=== PATIENT | male | born 1990 | race African-American/Black ===

== ENCOUNTER 2018-09-05 22:11 | Emergency (ER) | payer OTHER ==
[2018-09-05 23:41] LABS: Urine Blood NEGATIVE (NEG); Urine Glucose NEGATIVE (NEG); Urine Protein NEGATIVE (NEG); Urine pH 7.5 (5.0-7.0)
[2018-09-05 23:46] LABS: Urine Culture Reflex Order NOT NEEDED
[2018-09-05 23:47] LABS: Urine Amorphous Sediment 3+ /HPF (NONE SEEN); Urine Bacteria <20 /HPF (NONE SEEN); Urine RBC NONE SEEN /HPF (NONE SEEN)
--- NOTE | 2018-09-06 00:09 | ER ---
Nurse's Notes [facility] Name: Bakari Heller Age: 28 yrs Sex: Male : 1990 Arrival Date: 09/05/2018 Time: 22:12 Bed 15 Private MD: Diagnosis: Renal colic, flank pain Presentation: 09/05 22:30 Presenting complaint: Patient states: L flank pain for months; Denies any burning with lp1 urination; States having a physical done for work and was told he had protein in his urine. Transition of care: patient was not received from another setting of care. Onset of symptoms was September 05, 2018. Risk Assessment: Do you want to hurt yourself or someone else? Patient reports no desire to harm self or others. Initial Sepsis Screen: Does the patient meet any 2 criteria? No. Patient's initial sepsis screen is negative. Does the patient have a suspected source of infection? No. Patient's initial sepsis screen is negative. Care prior to arrival: None. 22:30 Method Of Arrival: Ambulatory lp1 22:30 Acuity: CARLYLE 3 lp1 Triage Assessment: 22:50 General: Appears in no apparent distress. comfortable, Behavior is calm, cooperative, cc3 appropriate for age. Pain: Complains of pain in flank pain. Historical: - Allergies: 22:49 No Known Allergies; lp1 - Home Meds: 22:49 None [Active]; lp1 - PMHx: 22:49 None; lp1 - PSHx: 22:49 None; lp1 - Immunization history:: Adult Immunizations up to date. - Social history:: Smoking status: Patient/guardian denies using tobacco. - Ebola Screening: : No symptoms or risks identified at this time. Screenin:49 Abuse screen: Denies threats or abuse. Denies injuries from another. Nutritional lp1 screening: No deficits noted. Tuberculosis screening: No symptoms or risk factors identified. Fall Risk None identified. Assessment: 23:30 Reassessment: Patient appears in no apparent distress at this time. Patient and/or cc3 family updated on plan of care and expected duration. Pain level reassessed. Patient is alert, oriented x 3, equal unlabored respirations, skin warm/dry/pink. 09/06 00:25 Reassessment: Patient appears in no apparent distress at this time. Patient and/or cc3 family updated on plan of care and expected duration. Pain level reassessed. Patient is alert, oriented x 3, equal unlabored respirations, skin warm/dry/pink. HARRIS Banda discharged the patient home with prescription given. No IV cannula in situ. Patient left ER vitally stable and ambulatory. Vital Signs: 09/05 22:30 BP 130 / 89; Pulse 64; Resp 18; Temp 99(TE); Pulse Ox 98% on R/A; Weight 83.01 kg; lp1 Height 6 ft. 0 in. (182.88 cm); Pain 6/10; 23:35 BP 129 / 85; Pulse 63; Resp 17 S; Pulse Ox 97% on R/A; cc3 09/06 00:15 BP 131 / 79; Pulse 66; Resp 18 S; Pulse Ox 98% on R/A; cc3 09/05 22:30 Body Mass Index 24.82 (83.01 kg, 182.88 cm) lp1 ED Course: 09/05 22:12 Patient arrived in ED. ds1 22:24 [facility] Lux F[facility]-C [facility]. snw 22:24 Maico Coe MD is Attending Physician. snw 22:33 Maria Fernanda Boyd is Primary Nurse. cc3 22:48 Triage completed. lp1 22:49 Arm band placed on left wrist. lp1 22:50 Patient has correct armband on for positive identification. Bed in low position. Call cc3 light in reach. Side rails up X 1. Pulse ox on. NIBP on. 23:[address] via wheelchair. kw1 23:23 CT Stone Protocol In Process Unspecified. EDMS 23:24 CT completed. Patient tolerated procedure well. Patient moved back from CT. kw1 09/06 00:25 No provider procedures requiring assistance completed. Patient did not have IV access cc3 during this emergency room visit. Administered Medications: No medications were administered Outcome: 00:09 Discharge ordered by . snw 00:25 Discharged to home ambulatory. cc3 00:25 Condition: stable 00:25 Discharge instructions given to patient, Instructed on discharge instructions, follow up and referral plans. medication usage, Demonstrated understanding of instructions, follow-up care, medications, Prescriptions given X 1. 00:27 Patient left the ED. cc3 Addendum: 09/09/2018 11:00 Addendum: Culture Results: Positive urine culture. Patient was not prescribed i w antibiotics at discharge. Report given to RUBA for further evaluation and then to media senior recruiter for follow up with patient. Phone call Attempt #1 not a working phone number, unable to leave voice mail. Signatures: Dispatcher [employer] EDMS Veronika Lux, FAYC BRANCH CHIEF-Csnw Rosanna Mora ds1 Ирина Spivey RN RN iw Judith Henry RN RN lp1 Madie Carr kw1 Maria Fernanda Boyd cc3
--- NOTE | 2018-09-06 00:10 | EDPHYS ---
Physician Documentation [facility] Name: Bakari Heller Age: 28 yrs Sex: Male : 1990 Arrival Date: 09/05/2018 Time: 22:12 Bed 15 Private MD: ED Physician Maico Coe HPI: 09/05 22:42 This 28 yrs old Black Male presents to ER via Unassigned with complaints of Side Pain, snw Kidney Pain. 22:42 Onset: The symptoms/episode began/occurred gradually. Associated signs and symptoms: snw Pertinent positives: protein in urine at recent physical, pt now fearful of kidney injury. Modifying factors: The patient symptoms are alleviated by nothing. The patient has experienced similar episodes in the past, several times. for Jocelyne physical, told to see urologist 2nd to proteinuria. Historical: - Allergies: 22:49 No Known Allergies; lp1 - Home Meds: 22:49 None [Active]; lp1 - PMHx: 22:49 None; lp1 - PSHx: 22:49 None; lp1 - Immunization history:: Adult Immunizations up to date. - Social history:: Smoking status: Patient/guardian denies using tobacco. - Ebola Screening: : No symptoms or risks identified at this time. ROS: 22:40 Constitutional: Negative for fever, chills, and weight loss, Eyes: Negative for injury, snw pain, redness, and discharge, ENT: Negative for injury, pain, and discharge, Neck: Negative for injury, pain, and swelling, Cardiovascular: Negative for chest pain, palpitations, and edema, Respiratory: Negative for shortness of breath, cough, wheezing, and pleuritic chest pain, Abdomen/GI: Negative for abdominal pain, nausea, vomiting, diarrhea, and constipation, : Negative for injury, bleeding, discharge, and swelling, MS/Extremity: Negative for injury and deformity, Skin: Negative for injury, rash, and discoloration, Neuro: Negative for headache, weakness, numbness, tingling, and seizure. Exam: 22:39 Constitutional: This is a well developed, well nourished patient who is awake, alert, snw and in no acute distress. Head/Face: Normocephalic, atraumatic. Eyes: Pupils equal round and reactive to light, extra-ocular motions intact. Lids and lashes normal. Conjunctiva and sclera are non-icteric and not injected. Cornea within normal limits. Periorbital areas with no swelling, redness, or edema. ENT: Nares patent. No nasal discharge, no septal abnormalities noted. Tympanic membranes are normal and external auditory canals are clear. Oropharynx with no redness, swelling, or masses, exudates, or evidence of obstruction, uvula midline. Mucous membranes moist. Neck: Trachea midline, no thyromegaly or masses palpated, and no cervical lymphadenopathy. Supple, full range of motion without nuchal rigidity, or vertebral point tenderness. No Meningismus. Chest/axilla: Normal chest wall appearance and motion. Nontender with no deformity. No lesions are appreciated. Cardiovascular: Regular rate and rhythm with a normal S1 and S2. No gallops, murmurs, or rubs. Normal PMI, no JVD. No pulse deficits. Respiratory: Lungs have equal breath sounds bilaterally, clear to auscultation and percussion. No rales, rhonchi or wheezes noted. No increased work of breathing, no retractions or nasal flaring. Abdomen/GI: Soft, non-tender, with normal bowel sounds. No distension or tympany. No guarding or rebound. No evidence of tenderness throughout. Skin: Warm, dry with normal turgor. Normal color with no rashes, no lesions, and no evidence of cellulitis. MS/ Extremity: Pulses equal, no cyanosis. Neurovascular intact. Full, normal range of motion. Neuro: Awake and alert, GCS 15, oriented to person, place, time, and situation. Cranial nerves II-XII grossly intact. Motor strength 5/5 in all extremities. Sensory grossly intact. Cerebellar exam normal. Normal gait. 22:39 Back: pain, that is mild, CVA tenderness, that is mild, is noted on the left. Vital Signs: 22:30 BP 130 / 89; Pulse 64; Resp 18; Temp 99(TE); Pulse Ox 98% on R/A; Weight 83.01 kg; lp1 Height 6 ft. 0 in. (182.88 cm); Pain 6/10; 23:35 BP 129 / 85; Pulse 63; Resp 17 S; Pulse Ox 97% on R/A; cc3 09/06 00:15 BP 131 / 79; Pulse 66; Resp 18 S; Pulse Ox 98% on R/A; cc3 09/05 22:30 Body Mass Index 24.82 (83.01 kg, 182.88 cm) lp1 MDM: 09/05 22:24 Patient medically screened. snw 09/06 00:10 Data reviewed: vital signs, nurses notes. Data interpreted: Pulse oximetry: on room air snw is 98 %. Interpretation: normal. Counseling: I had a detailed discussion with the patient and/or guardian regarding: the historical points, exam findings, and any diagnostic results supporting the discharge/admit diagnosis, the presence of at least one elevated blood pressure reading (>120/80) during this emergency department visit, lab results, radiology results, the need for outpatient follow up, to return to the emergency department if symptoms worsen or persist or if there are any questions or concerns that arise at home. Special discussion: Based on the history and exam findings, there is no indication for further emergent testing or inpatient evaluation. I discussed with the patient/guardian the need to see the primary care provider for further evaluation of the symptoms. 09/05 22:34 Order name: Urine Microscopic Only; Complete Time: 23:48 snw 09/05 22:39 Order name: Urine Culture snw 09/05 22:34 Order name: Urine Dipstick-Ancillary (obtain specimen); Complete Time: 23:03 snw 09/05 22:39 Order name: CT Stone Protocol snw 09/05 22:59 Order name: Urine Dipstick--Ancillary (enter results); Complete Time: 23:42 mt Administered Medications: No medications were administered Disposition: 06:46 Co-signature as Attending Physician, Maico Coe MD I agree with the assessment and jose plan of care. Disposition: 09/06/18 00:09 Discharged to Home. Impression: Renal colic, flank pain. - Condition is Stable. - Discharge Instructions: Back Pain, Adult, Renal Colic. - Prescriptions for Diclofenac Sodium 75 mg Oral Tablet Sustained Release - take 1 tablet by ORAL route 2 times per day; 30 tablet. - Work release form, Medication Reconciliation Form, Thank You Letter, Antibiotic Education, Prescription Opioid Use form. - Follow up: Private Physician; When: 2 - 3 days; Reason: Recheck today's complaints, Continuance of care, Re-evaluation by your physician. Follow up: Emergency Department; When: As needed; Reason: Worsening of condition. Signatures: Dispatcher [employer] EDMS Maico Coe MD MD cha Therrien, Shelly, GIS SCIENTIST-C GIS SCIENTIST-Csnw Judith Henry RN RN lp1 Maria Fernanda Boyd cc3 Corrections: (The following items were deleted from the chart) 00:27 00:09 09/06/2018 00:09 Discharged to Home. Impression: Renal colic, flank pain. cc3 Condition is Stable. Forms are Medication Reconciliation Form, Thank You Letter, Antibiotic Education, Prescription Opioid Use. Follow up: Private Physician; When: 2 - 3 days; Reason: Recheck today's complaints, Continuance of care, Re-evaluation by your physician. Follow up: Emergency Department; When: As needed; Reason: Worsening of condition. snw
--- NOTE | 2018-09-06 08:40 | RAD REPORT ---
EXAM DESCRIPTION: CT - Stone Protocol - 09/06/2018 5:51 am CLINICAL HISTORY: Abdominal pain. Left flank pain COMPARISON: None. TECHNIQUE: Computed axial tomography of the abdomen pelvis was obtained without oral or IV contrast. Lack of IV and oral contrast limits evaluation of solid organs, bowel, and vessels. Coronal reformat bhumika images were obtained and reviewed. Preliminary report generated by virtual radiologic a review pr ior to dictation All CT scans are performed using dose optimization technique as appropriate and may include automated exposure control or mA/KV adjustment according to patient size. FINDINGS: A renal calculus is not seen. An ureteral calculus is not noted. A bladder calculus is not present. The liver, spleen, pancreas and adrenals appear grossly normal There is no evidence of diverticulitis. The appendix appears normal Spondylolysis involves L5. A moderate amount of stool is present throughout colon IMPRESSION: Negative for a genitourinary calculus
== END 2018-09-06 00:27 | disposition home or self-care (01) ==
LOC: ER 22:11
DX: N23 Unspecified renal colic (principal)
CPT/HCPCS: 74176; 76377; 81003; 81015; 87077; 87086; 87088; 87186; 99284

== ENCOUNTER 2021-04-20 17:37 | Emergency (ER) | payer OTHER, SELFPAY ==
--- OUTSIDE RECORDS SUMMARY | 2021-04-20 17:39 | XMS REPORT | Continuity of Care Document ---
:1990 Author Organization [facility] t Address [address] [place] [address] Care Team Providers Name Role Phone Unavailable Unavailable Unavailable Problems This patient has no known problems. Allergies, Adverse Reactions, Alerts This patient has no known allergies or adverse reactions. Medications This patient has no known medications. Procedures This patient has no known procedures. Results Test Description Test Time Test Comments Results Result [facility] e Comments Urine Culture 2019-07-15 C Urine Added No growth at 2 days. 07:00:46 by [email or web address] X US Extremity 2019-07-14 Patient: KING Nonvascular 16:00:59 TJ Limited Bilat Date/Time07/14/2019 15:46 CDTReason for Exampenis pain;Other (please specify)ReportUltras ound soft tissue penisHISTORY: Sudden onset penile pain without precipitating event or injuryCOMPARISON: NoneTECHNIQUE: Real-time sonographic images of the penis obtained with color Doppler interrogation.FINDIN GS: No definable defect identified regarding the tunica albuginea of the corpora cavernosa. No hematoma or free fluid evident. No soft tissue mass identified.IMPRESSIO N:1. Unremarkable sonographic appearance of the penis. Final Dictated by: MD Boris, David DT/TM: 07/14/2019 3:58 pmSigned by: MD Boris, Froilan (Electronic Signature): 07/14/2019 4:00 pm Urinalysis Microscopic 2019-07-14 14:58:34 Test Item Value Reference Range Interpretation Comme nts UA WBC (test code = UA WBC) 0-5 /HPF 0-5 UA RBC (test code = UA RBC) 0-4 /HPF 0-4 Urinalysis with Culture, if [id number] 14:41:49 Test Item Value Reference Range Interpretation Comments UA Color (test code = Gricel Yellow A UA Color) UA Appear (test code = Clear Clear UA Appear) UA pH (test code = UA 7.0 5.0-8.5 pH) UA Spec Grav (test code 1.020 SGU 1.005-1.030 = UA Spec Grav) UA Glucose (test code = Negative Negative UA Glucose) UA Bili (test code = UA Negative Negative Bili) UA Ketones (test code = Negative Negative UA Ketones) UA Blood (test code = Trace-intact Negative A UA Blood) UA Protein (test code = 1+ Negative A UA Protein) UA Urobilinogen (test 0.2 EU/dL >0.2 code = UA Urobilinogen) UA Nitrite (test code = Negative Negative UA Nitrite) UA Leuk Est (test code 1+ Negative A = UA Leuk Est) UA Micro Ind? (test Indicated Not Indicated A Result created by code = UA Micro Ind?) rule GL_SET_UA_MICRO _IN D
--- NOTE | 2021-04-20 18:31 | RAD REPORT ---
EXAM DESCRIPTION: RAD - Ankle Left 3 View - 04/20/2021 6:17 pm CLINICAL HISTORY: PAIN COMPARISON: Ankle Left 3 View dated 09/01/2015 FINDINGS: Mild soft tissue swelling is present. No acute fracture or dislocation seen. Small bony de nsity in the medial clear space is probably related to previous trauma. Tiny calcaneal spur.
--- NOTE | 2021-04-20 18:42 | EDPHYS ---
Physician Documentation [facility] Name: Bakari Heller Age: 31 yrs Sex: Male : 1990 Arrival Date: 04/20/2021 Time: 17:42 Bed 4 Private MD: ED Physician Carolann Bolanos HPI: 04/20 18:18 This 31 yrs old Black Male presents to ER via EMS with complaints of Ankle Injury. ma2 18:18 The patient presents with pain. Onset: The symptoms/episode began/occurred suddenly, 1 ma2 hour(s) ago. Associated signs and symptoms: Pertinent negatives: fever, rash, tingling. Severity of symptoms: At their worst the symptoms were mild, in the emergency department the symptoms are unchanged. The patient has not experienced similar symptoms in the past. Historical: - Allergies: 17:45 No Known Allergies; bp - Home Meds: 17:45 None [Active]; bp - PMHx: 17:45 None; bp - Immunization history:: Adult Immunizations up to date. - Social history:: Smoking status: Patient denies any tobacco usage or history of. - Family history:: not pertinent. ROS: 18:18 Constitutional: Negative for fever, chills, and weight loss. ma2 18:18 All other systems are negative. Exam: 18:18 Constitutional: This is a well developed, well nourished patient who is awake, alert, ma2 and in no acute distress. Chest/axilla: Normal chest wall appearance and motion. Nontender with no deformity. No lesions are appreciated. Cardiovascular: Regular rate and rhythm with a normal S1 and S2. No gallops, murmurs, or rubs. Normal PMI, no JVD. No pulse deficits. Respiratory: Lungs have equal breath sounds bilaterally, clear to auscultation and percussion. No rales, rhonchi or wheezes noted. No increased work of breathing, no retractions or nasal flaring. Abdomen/GI: Soft, non-tender, with normal bowel sounds. No distension or tympany. No guarding or rebound. No evidence of tenderness throughout. Back: No spinal tenderness. No costovertebral tenderness. Full range of motion. Skin: Warm, dry with normal turgor. Normal color with no rashes, no lesions, and no evidence of cellulitis. MS/ Extremity: left achilles tendon tenderness and swelling, no alfonso ttp at foot or ankle, otherwise Pulses equal, no cyanosis. Neurovascular intact. Full, normal range of motion. Neuro: Awake and alert, GCS 15, oriented to person, place, time, and situation. Cranial nerves II-XII grossly intact. Motor strength 5/5 in all extremities. Sensory grossly intact. Cerebellar exam normal. Normal gait. Vital Signs: 17:42 BP 133 / 93; Pulse 96; Resp 17; Temp 98; Pulse Ox 98% ; bp 20:00 BP 151 / 88; Pulse 68; Resp 18; Temp 97.8; Pulse Ox 99% ; ea Procedures: 18:18 Splinting: Splint applied to left leg. Splinting: using Orthoglass splint, applied by [facility] tech. post reduction film - Examined by me, post splint application: neurovascular intact, 2+ distal pulses palpable, brisk capillary refill noted, Patient tolerated well. MDM: 17:44 Patient medically screened. kb 18:40 Differential diagnosis: sprain, arthritis, achilles tendon partial vs complete sprain. [facility] Data reviewed: vital signs, nurses notes. Counseling: I had a detailed discussion with the patient and/or guardian regarding: the historical points, exam findings, and any diagnostic results supporting the discharge/admit diagnosis, the presence of at least one elevated blood pressure reading (>120/80) during this emergency department visit, the need for outpatient follow up. Response to treatment: the patient's symptoms have markedly improved after treatment. 04/20 17:47 Order name: XRAY Ankle LEFT 3 view [facility] 04/20 17:49 Order name: Crutches; Complete Time: 19:56 [facility] 04/20 18:21 Order name: Splint Leg: Short Leg: poterior splint with ankle at plantal-flexed; [facility] Complete Time: 19:56 Administered Medications: 20:01 Drug: Olpe (HYDROcodone-acetaminophen) 10 mg-325 mg 1 tabs Route: PO; ea 20:01 Follow up: Response: Medication administered at discharge. ea 20:11 Follow up: Response: Medication administered at discharge. ea Disposition: 04/20/21 18:41 Discharged to Home. Impression: Other specified injury of left Achilles tendon. - Condition is Stable. - Discharge Instructions: Complete Achilles Tendon Rupture, Partial (Incomplete) Achilles Tendon Rupture, Achilles Tendon Repair. - Prescriptions for Diclofenac Sodium 75 mg Oral Tablet Sustained Release - take 1 tablet by ORAL route 2 times per day; 30 tablet. - Work release form, Medication Reconciliation Form, Thank You Letter, Antibiotic Education, Prescription Opioid Use form. - Follow up: Dr. Bruno Minaya; When: Tomorrow; Reason: If symptoms return, Continuance of care. - Notes: see your PCP for MRI of achilles tendon. follow up with orthopedics for further management Signatures: Dispatcher [employer] EDMirian Caal, PUBLIC RELATIONS ACCOUNT EXECUTIVE-C PUBLIC RELATIONS ACCOUNT EXECUTIVE-CkSuzie Pelayo, RN RN Sohail Christensen RN Carolann Little MD MD ma2 Corrections: (The following items were deleted from the chart) 20:11 18:41 04/20/2021 18:41 Discharged to Home. Impression: Other specified injury of left ea Achilles tendon. Condition is Stable. Discharge Instructions: Complete Achilles Tendon Rupture, Partial (Incomplete) Achilles Tendon Rupture, Achilles Tendon Repair. Prescriptions for Diclofenac Sodium 75 mg Oral Tablet Sustained Release - take 1 tablet by ORAL route 2 times per day; 30 tablet. and Forms are Medication Reconciliation Form, Thank You Letter, Antibiotic Education, Prescription Opioid Use. Follow up: Dr. Bruno Minaya; When: Tomorrow; Reason: If symptoms return, Continuance of care. ma2
--- NOTE | 2021-04-20 18:42 | ER ---
Nurse's Notes [facility] Name: Bakari Heller Age: 31 yrs Sex: Male : 1990 Arrival Date: 04/20/2021 Time: 17:42 Bed 4 Private MD: Diagnosis: Other specified injury of left Achilles tendon Presentation: 04/20 17:42 Chief complaint: EMS states: LEFT ANKLE PAIN/DEFORMITY DURING BASKETBALL, NOW WITH bp NUMBNESS BELOW MALEOLUS. Coronavirus screen: At this time, the client does not indicate any symptoms associated with coronavirus-19. Ebola Screen: No symptoms or risks identified at this time. Initial Sepsis Screen: Does the patient meet any 2 criteria? No. Patient's initial sepsis screen is negative. Does the patient have a suspected source of infection? No. Patient's initial sepsis screen is negative. Risk Assessment: Do you want to hurt yourself or someone else? Patient reports no desire to harm self or others. Onset of symptoms was April 20, 2021 at 17:15. Care prior to arrival: Medication(s) given: FENTANYL 50MCG IV initiated. 18 GA, in the left antecubital area. 17:42 Method Of Arrival: EMS: [facility] bp 17:42 Acuity: CARLYLE 3 bp Triage Assessment: 17:45 General: Appears distressed, uncomfortable, Behavior is cooperative, appropriate for bp age, anxious. Pain: Complains of pain in left Achilles. EENT: No deficits noted. Neuro: No deficits noted. Cardiovascular: No deficits noted. Respiratory: No deficits noted. GI: No signs and/or symptoms were reported involving the gastrointestinal system. : No signs and/or symptoms were reported regarding the genitourinary system. Derm: No deficits noted. Musculoskeletal: Circulation, motion, and sensation intact. Range of motion: limited in left ankle. Historical: - Allergies: 17:45 No Known Allergies; bp - Home Meds: 17:45 None [Active]; bp - PMHx: 17:45 None; bp - Immunization history:: Adult Immunizations up to date. - Social history:: Smoking status: Patient denies any tobacco usage or history of. - Family history:: not pertinent. Screenin:47 Abuse screen: Denies threats or abuse. Denies injuries from another. Nutritional bp screening: No deficits noted. Tuberculosis screening: No symptoms or risk factors identified. Fall Risk None identified. Assessment: 17:47 General: SEE TRIAGE NOTE. bp 19:55 Reassessment: Patient and/or family updated on plan of care and expected duration. Pain ea level reassessed. Patient is alert, oriented x 3, equal unlabored respirations, skin warm/dry/pink. Vital Signs: 17:42 BP 133 / 93; Pulse 96; Resp 17; Temp 98; Pulse Ox 98% ; bp 20:00 BP 151 / 88; Pulse 68; Resp 18; Temp 97.8; Pulse Ox 99% ; ea ED Course: 17:42 Patient arrived in ED. bp 17:44 iMrian Butler F[facility]C [facility] kb 17:44 Carolann Bolanos MD is Attending Physician. kb 17:45 Triage completed. bp 17:45 Arm band placed on. bp 17:47 Patient has correct armband on for positive identification. Bed in low position. Call bp light in reach. Side rails up X2. 17:47 Maintain EMS IV. Dressing intact. Good blood return noted. Site clean \T\ dry. Gauge \T\ bp site: 18 GAUGE LEFT AC. 17:49 Sohail Fritz, LAN is Primary Nurse. bp 18:17 XRAY Ankle LEFT 3 view In Process Unspecified. EDMS 18:41 Bruno Minaya MD is Referral Physician. ma2 20:02 Orthoglass splint: Posterior short lleg splint applied on left leg. oe 20:10 No provider procedures requiring assistance completed. IV discontinued, intact, ea bleeding controlled, No redness/swelling at site. Pressure dressing applied. Administered Medications: 20:01 Drug: [place] (HYDROcodone-acetaminophen) 10 mg-325 mg 1 tabs Route: PO; ea 20:01 Follow up: Response: Medication administered at discharge. ea 20:11 Follow up: Response: Medication administered at discharge. ea Outcome: 18:41 Discharge ordered by . ma2 20:10 Discharged to home ambulatory, with family. ea 20:10 Condition: stable 20:10 Discharge instructions given to patient, Instructed on discharge instructions, follow up and referral plans. medication usage, Demonstrated understanding of instructions, follow-up care, medications, Prescriptions given X 1. 20:11 Patient left the ED. ea Signatures: Dispatcher [employer] EDMS Mirian Butler FNP-C AUTOMOTIVE SERVICE WRITER-Ckb Suleman Flores Elena RN RN Sohail Christensen RN RN bp Carolann Bolanos MD MD ma2 Corrections: (The following items were deleted from the chart) 17:57 17:42 Pulse 96bpm; Resp 17bpm; Pulse Ox 98%; Temp 98F; bp bp
[2021-04-20] MEDS ORDERED: HYDROCODONE/APAP 10/325 TAB ONE (20:21)
[2021-04-20 20:52] VITALS: BP 151/88; TEMP 97.8; O2SAT 99
== END 2021-04-20 20:11 | disposition home or self-care (01) ==
LOC: ER 17:37
PROC: 2W3RX1Z Immobilization of Left Lower Leg using Splint (ICD-10-PCS; principal; 2021-04-20)
DX: S86.092A Other specified injury of left Achilles tendon, initial encounter (principal); X58.XXXA Exposure to other specified factors, initial encounter
CPT/HCPCS: 99284

== ENCOUNTER 2021-12-18 03:58 | Emergency (ER) | payer OTHER ==
--- OUTSIDE RECORDS SUMMARY | 2021-12-18 04:04 | XMS REPORT | Continuity of Care Document ---
:1990 Author Organization [facility] t Address [address] [place] [address] Care Team Providers Name Role Phone ASHLEY Attending Clinician Unavailable Ashley AVALOS Attending Clinician DIETER Attending Clinician Unavailable Srinath AVALOS Attending Clinician SRINATH Attending Clinician Unavailable Pipes ANP Attending Clinician Vince Munoz MD Attending Clinician PIPES Attending Clinician Unavailable Draw, Lab Attending Clinician Unavailable Doctor Unassigned, Name Attending Clinician Unavailable Triston Patel DO Attending Clinician Triston PATEL Attending Clinician Unavailable Afshan VEGA, F Attending Clinician Payers Payer Name Policy Type Policy Number Effective Date Expiration Date S irving TUCKER CHOICE POS [id number] 2018 00:00:00 II Problems Condition Condition Condition Status Onset Resolution Last Treating Co mments Source Name Details Category Date Date Treatment Clinician Date Left-sided Left-sided Disease Active 2019-10 U nivers low back low back 2-18 [place] left-sided left-sided 00 Me dical sciatica sciatica Branch No known No known Disease Unive rs active active ity of problems problems [facility] Allergies, Adverse Reactions, Alerts Allergy Allergy Status Severity Reaction(s) Onset Inactive Treating Comm ents Source Name Type Date Date Clinician NO KNOWN Drug Active Univers ALLERGIE Class ity of S [facility] Social History Social Habit Start Date Stop Date Quantity Comments Source Exposure to Not sure [facility] SARS-CoV-2 (event) Medica l Branch Tobacco use and 2020-10-14 2020-10-14 Never used [facility] [place] exposure 00:00:00 00:00:00 Medical Branch Sex Ass[birth year] At [birth year] [facility] 00:00:00 00:00:00 Medical Branch Smoking Status Start Date Stop Date Source Never smoker [facility] Medical Branch Unknown if ever smoked [facility] [place] Medications Ordered Filled Start Stop Current Ordering Indication Dosage Frequency Signature Comments Components Source Medication Medication Date Date Medication? Clinician (SIG) Name Name naproxen 2019-10 Yes [id number] 500 mg Un evelyn 250 mg 2-15 twice ity of tablet 00:00: daily for [place] , Medical then 250 Branch mg twice daily for 10 days naproxen 2019-10 Yes [id number] 500 mg Un evelyn 250 mg 2-15 twice ity of tablet 00:00: daily for [place] , Medical then 250 Branch mg twice daily for 10 days naproxen 2019-10 Yes [id number] 500 mg Un evelyn 250 mg 2-15 twice ity of tablet 00:00: daily for [place] , Medical then 250 Branch mg twice daily for 10 days naproxen 2019-10 Yes [id number] 500 mg Un evelyn 250 mg 2-15 twice ity of tablet 00:00: daily for [place] , Medical then 250 Branch mg twice daily for 10 days naproxen 2019-10 Yes [id number] 500 mg Un evelyn 250 mg 2-15 twice ity of tablet 00:00: daily for [place] , Medical then 250 Branch mg twice daily for 10 days naproxen 2019-10 Yes [id number] 500 mg Un evelyn 250 mg 2-15 twice ity of tablet 00:00: daily for [place] , Medical then 250 Branch mg twice daily for 10 days naproxen 2019-10 Yes [id number] 500 mg Un evelyn 250 mg 2-15 twice ity of tablet 00:00: daily for [place] day, Medical then 250 Branch mg twice daily for 10 days naproxen 2019-10 Yes [id number] 500 mg Un evelyn 250 mg 2-15 twice ity of tablet 00:00: daily for [place] day, Medical then 250 Branch mg twice daily for 10 days naproxen 2019-10 Yes [id number] 500 mg Un evelyn 250 mg 2-15 twice ity of tablet 00:00: daily for 1 day, Medical then 250 Branch mg twice daily for 10 days famotidine 2019-10- No [id number] 20mg Take 1 Univers (PEPCID) 20 2-15 12-27 tablet by it y of mg tablet 00:00: 05:59 [place] 2 [place] (two[place] Medical times Branch daily for 11 days. famotidine 2019-10- No [id number] 20mg Take 1 Univers (PEPCID) 20 2-15 12-27 tablet by it y of mg tablet 00:00: 05:[place] (two) Medical times Branch daily for 11 days. famotidine 2019-10- No [id number] 20mg Take 1 Univers (PEPCID) 20 2-15 12-27 tablet by it y of mg tablet 00:00: 05:59 [place] 2 [place] (two) Medical times Branch daily for 11 days. famotidine 2019-10- No [id number] 20mg Take 1 Univers (PEPCID) 20 2-15 12-27 tablet by it y of mg tablet 00:00: 05:59 [place] 2 [place] 00 :[place] (two) Medical times Branch daily for 11 days. famotidine 2019-10- No [id number] 20mg Take 1 Univers (PEPCID) 20 2-15 12-27 tablet by it y of mg tablet 00:00: 05:59 [place] 2 [place] 00 :[place] (two) Medical times Branch daily for 11 days. famotidine 2019-10- No [id number] 20mg Take 1 Univers (PEPCID) 20 2-15 12-27 tablet by it y of mg tablet 00:00: 05:59 mouth 2 [place] 00 :[place] (two) Medical times Branch daily for 11 days. famotidine 2019-10- No [id number] 20mg Take 1 Univers (PEPCID) 20 2-15 12-27 tablet by it y of mg tablet 00:00: 05:59 mouth 2 [place] 00 :[place] (two) Medical times Branch daily for 11 days. cyclobenzap 2019- Yes [id number] 1-2 po TID Univers rine 5 mg 0-15 prn ity of tablet 00:00: [place] [id number] Medical Branch gabapentin 2020-1 Yes [id number] 1-3 caps Univers 100 mg 0-15 po TID as ity of capsule 00:00: directed [place] [facility] lidocaine 5 2020-1 Yes [id number] 1-3 U nivers % (700 0-15 patches to ity of mg/patch) 00:00: affected [place] patch 00 area as Medical directed Branch 12h on, 12h off cyclobenzap 2019-10 Yes [id number] 1-2 po TID Univers rine 5 mg 0-15 prn ity of tablet 00:00: [place] [facility] gabapentin 2020-1 Yes [id number] 1-3 caps Univers 100 mg 0-15 po TID as ity of capsule 00:00: directed [place] [facility] lidocaine 5 2020-1 Yes [id number] 1-3 U nivers % (700 0-15 patches to ity of mg/patch) 00:00: [place] 00 area as Medical directed Branch 12h on, 12h off cyclobenzap 2019-10 Yes [id number] 1-2 po TID Univers rine 5 mg 0-15 prn ity of tablet 00:00: [place] [facility] gabapentin 2020-1 Yes [id number] 1-3 caps Univers 100 mg 0-15 po TID as ity of capsule 00:00: directed [place] [facility] lidocaine 5 2020-1 Yes [id number] 1-3 U nivers % (700 0-15 patches to ity of mg/patch) 00:00: [place] as Medical directed Branch 12h on, 12h off cyclobenzap 2019-10 Yes [id number] 1-2 po TID Univers rine 5 mg 0-15 prn ity of tablet 00:00: [place] [facility] gabapentin 2020-1 Yes [id number] 1-3 caps Univers 100 mg 0-15 po TID as ity of capsule 00:00: directed [place] [facility] lidocaine 5 2020-1 Yes [id number] 1-3 U nivers % (700 0-15 patches to ity of mg/patch) 00:00: [place] area as Medical directed Branch 12h on, 12h off cyclobenzap 2019-10 Yes [id number] 1-2 po TID Univers rine 5 mg 0-15 prn ity of tablet 00:00: [place] [facility] gabapentin 2020-1 Yes [id number] 1-3 caps Univers 100 mg 0-15 po TID as ity of capsule 00:00: directed [place] [facility] lidocaine 5 2020-1 Yes [id number] 1-3 U nivers % (700 0-15 patches to ity of mg/patch) 00:00: [place] area as Medical directed Branch 12h on, 12h off cyclobenzap 2019- Yes [id number] 1-2 po TID Univers rine 5 mg 0-15 prn ity of tablet 00:00: [place] [facility] gabapentin 2020-1 Yes [id number] 1-3 caps Univers 100 mg 0-15 po TID as ity of capsule 00:00: directed [place] [facility] lidocaine 5 2020-1 Yes [id number] 1-3 U nivers % (700 0-15 patches to ity of mg/patch) 00:00: [place] as Medical directed Branch 12h on, 12h off cyclobenzap 2019-10 Yes [id number] 1-2 po TID Univers rine 5 mg 0-15 prn ity of tablet 00:00: [place] [facility] gabapentin 2020-1 Yes [id number] 1-3 caps Univers 100 mg 0-15 po TID as ity of capsule 00:00: directed [place] [facility] lidocaine 5 2020-1 Yes [id number] 1-3 U nivers % (700 0-15 patches to ity of mg/patch) 00:00: [place] as Medical directed Branch 12h on, 12h off cyclobenzap 2019-10 Yes [id number] 1-2 po TID Univers rine 5 mg 0-15 prn ity of tablet 00:00: [place] [facility] gabapentin 2020-1 Yes [id number] 1-3 caps Univers 100 mg 0-15 po TID as ity of capsule 00:00: directed [place] [facility] lidocaine 5 2020- Yes [id number] 1-3 U nivers % (700 0-15 patches to ity of mg/patch) 00:00: [place] area as Medical directed Branch 12h on, 12h off cyclobenzap 2019-10 Yes [id number] 1-2 po TID Univers rine 5 mg 0-15 prn ity of tablet 00:00: [place] 00 Medical Branch gabapentin 2019-10 Yes [id number] 1-3 caps Univers 100 mg 0-15 po TID as ity of capsule 00:00: directed [place] 00 Medical Branch lidocaine 5 2019-10 Yes [id number] 1-3 U nivers % (700 0-15 patches to ity of mg/patch) 00:00: [place] area as Medical directed Branch 12h on, 12h off cyclobenzap 2019-10 2020- No [id number] 1-2 po TID Univers rine 5 mg 0-15 12-15 prn ity of tablet 00:00: 00:00 [place] 00 :00 Medical Branch gabapentin 2019-10 2020- No [id number] 1-3 caps Univers 100 mg 0-15 12-15 po TID as ity of capsule 00:00: 00:00 directed [place] 00 :00 Medical Branch lidocaine 5 2019-10 2020- No [id number] 1-3 Univers % (700 0-15 12-15 patches to ity of mg/patch) 00:00: 00:00 affected [place] as patch 00 :00 area as Medical directed Branch 12h on, 12h off cyclobenzap 2019-10 2020- No [id number] 1-2 po TID Univers rine 5 mg 0-15 12-15 prn ity of tablet 00:00: 00:00 [place] 00 :00 Medical Branch gabapentin 2019-10 2020- No [id number] 1-3 caps Univers 100 mg 0-15 12-15 po TID as ity of capsule 00:00: 00:00 directed [place] 00 :00 Medical Branch lidocaine 5 2019-10 2020- No [id number] 1-3 Univers % (700 0-15 12-15 patches to ity of mg/patch) 00:00: 00:00 affected [place] as patch 00 :00 area as Medical directed Branch 12h on, 12h off No known No Univers medications ity of [facility] No known No Univers medications ity of [facility] No known No Univers medications ity of [facility] No known No Univers medications ity of [facility] Immunizations Ordered Filled Immunization Date Status Comments [facility] e Immunization Name Name [facility] 2020-04-07 [facility] [address] 00:00:00 [facility] 2020-04-07 Completed University of 00:00:00 [place] [facility] TDAP 2020-04-07 Completed University of 00:00:00 [place] [facility] TDAP 2020-04-07 Completed University of 00:00:00 [place] [facility] TDAP 2020-04-07 Completed University of 00:00:00 [place] [facility] TDAP 2020-04-07 Completed University of 00:00:00 [place] [facility] TDAP 2020-04-07 Completed University of 00:00:00 [place] [facility] TDAP 2020-04-07 Completed University of 00:00:00 [place] [facility] TDAP 2020-04-07 Completed University of 00:00:00 [place] [facility] TDAP 2020-04-07 Completed University of 00:00:00 [place] [facility] TDAP 2020-04-07 Completed University of 00:00:[address] [facility] Vital Signs Vital Name Observation Time Observation Value Comments Source Body height 2020-10-20 15:40:00 182.9 cm Universi ty of [facility] Body weight 2020-10-20 15:40:00 86.183 kg Universi ty [facility] BMI 2020-10-20 15:40:00 25.77 kg/m2 Universi ty [facility] Systolic blood 2020-10-14 19:06:00 130 mm[Hg] Univer sity of pressure [facility] Diastolic blood 2020-10-14 19:06:00 70 mm[Hg] Unive rsity of pressure [facility] Heart rate 2020-10-14 19:06:00 75 /min Universi ty [facility] Body temperature 2020-10-14 19:06:00 36.83 Iveth Univ ersity of [facility] Body height 2020-10-14 19:06:00 182.9 cm Universi ty [facility] Body weight 2020-10-14 19:06:00 86.183 kg Universi ty of [facility] BMI 2020-10-14 19:06:00 25.77 kg/m2 Universi ty [facility] Oxygen saturation in 2020-10-14 19:06:00 97 /min [facility] Arterial blood by [facility] Pulse oximetry Branch Systolic blood 2020-08-14 16:56:00 135 mm[Hg] Univer sity of pressure [facility] Diastolic blood 2020-08-14 16:56:00 88 mm[Hg] Unive rsity of pressure [place] [facility] Heart rate 2020-08-14 16:56:00 64 /min Universi ty of [place] [facility] Body temperature 2020-08-14 16:56:00 36.72 Iveth Univ ersity of [place] [facility] Body height 2020-08-14 16:56:00 182.9 cm Universi ty of [place] [facility] Body weight 2020-08-14 16:56:00 85.095 kg Universi ty of [place] [facility] BMI 2020-08-14 16:56:00 25.44 kg/m2 Universi ty of [place] [facility] Oxygen saturation in 2020-08-14 16:56:00 99 /min University of Arterial blood by [facility] Pulse oximetry Branch Systolic blood 2020-08-12 04:17:00 140 mm[Hg] Univer sity of pressure [place] [facility] Diastolic blood 2020-08-12 04:17:00 89 mm[Hg] Unive rsity of pressure [place] [facility] Heart rate 2020-08-12 04:17:00 73 /min Universi ty [facility] [place] [facility] [place] Body temperature 2020-08-12 04:17:00 37.11 Iveth Univ ersity of [place] [facility] Respiratory rate 2020-08-12 04:17:00 18 /min Univ ersity of [place] [facility] Body weight 2020-08-12 04:17:00 84.369 kg Universi ty of [facility] BMI 2020-08-12 04:17:00 25.23 kg/m2 Universi ty of [facility] Systolic blood 2019-12-21 22:14:00 130 mm[Hg] Univer sity of pressure [place] [facility] Diastolic blood 2019-12-21 22:14:00 84 mm[Hg] Unive rsity of pressure [place] [facility] Heart rate 2019-12-21 22:14:00 73 /min Universi ty of [place] [facility] Body temperature 2019-12-21 22:14:00 36.89 Iveth Univ ersity of [place] [facility] Respiratory rate 2019-12-21 22:14:00 18 /min Univ ersity of [facility] Branch Body height 2019-12-21 22:14:00 182.9 cm Universi ty of [place] [facility] [place] Body weight 2019-12-21 22:14:00 83.915 kg Universi ty of [place] [facility] BMI 2019-12-21 22:14:00 25.09 kg/m2 Universi ty of [place] [facility] [place] Oxygen saturation in 2019-12-21 22:14:00 99 /min University Arterial blood by [facility] Pulse oximetry Branch Procedures Procedure Date / Time Performed Performing Clinician Sour e HIV 1/2 AG-AB WITH 2020-10-14 19:55:00 Saúl Rojas [facility] Medical Branch MR LUMBAR SPINE WO 2020-09-29 22:48:00 Patricia Bo [facility] CONTRAST Medical Branch XR PELVIS <3 VW 2020-09-29 20:40:16 Mulu Munoz [place] o f [facility] ASSIGNMENT OF BENEFITS 2020-08-14 16:48:44 Doctor Unassigned, No [facility] Name [facility] POCT GLUCOSE 2020-08-12 04:39:00 Lilian Patel [facility] (AUTOMATED) Medical [place] NOTICE OF PRIVACY 2020-08-12 04:08:05 Doctor Unassigned, No Univ [facility] Name [facility] CONSENT/REFUSAL FOR 2020-08-12 04:05:20 Doctor Unassigned, No [facility] DI[facility] AND Name Medical Branch TREATMENT Encounters Start End Encounter Admission Attending Care Care Encounter Source Date/Time Date/Time Type Type Clinicians Facility Department ID 2021-03-24 2021-03-24 Outpatient R [facility] [id number] Univers 08:00:00 08:00:00 SAÚL [id number] [facility] 2021-03-24 2021-03-24 Outpatient R [facility] [id number] Univers 00:00:00 00:00:00 [facility] 2021-03-12 2021-03-12 Telephone [facility] [id number] Univers 00:00:00 00:00:00 Saúl ARVIZU [id number] ity [facility] [id number] [id number] [facility] AND [address] [place] [address] E CLINIC 2021-03-11 2021-03-11 [facility] [id number] Univers 17:30:00 23:59:00 Encounter Saúl Broseley [id number] ity [facility] [id number] [facility] [id number] [address] 2021-03-11 2021-03-11 Outpatient R ASHLEY [facility] [id number] Univers 17:30:00 17:30:00 SAÚL [id number] ity [facility] 2021-03-11 2021-03-11 Outpatient R ASHLEY [facility] [id number] Univers 17:30:00 17:30:00 SAÚL ity [facility] 2020-12-01 2020-12-01 Outpatient R ASHLEY [facility] [id number] Univers 14:15:00 14:15:00 SAÚL [id number] ity [facility] 2020-12-01 2020-12-01 Outpatient R ASHLEY [facility] [id number] Univers 14:15:00 14:15:00 SAÚL ity [facility] 2020-11-13 2020-11-13 Outpatient R [facility] [id number] Univers 11:00:00 11:00:00 [id number] ity [facility] 2020-11-11 2020-11-11 Outpatient R ASHLEY [facility] [id number] Univers 09:20:00 09:20:00 SAÚL [id number] ity [facility] 2020-10-30 2020-10-30 Outpatient R DIETER [facility] [id number] Univers 10:00:00 10:00:00 ADRIANA [id number] ity [facility] 2020-10-27 2020-10-27 Outpatient R [facility] [id number] Univers 11:00:00 11:00:00 [id number] ity [facility] 2020-10-27 2020-10-27 Outpatient R [facility] [id number] Univers 11:00:00 11:00:00 ity [facility] 2020-10-21 2020-10-21 Outpatient R ASHLEY [facility] [id number] Univers 00:00:00 00:00:00 SAÚL [id number] ity of [facility] 2020-10-21 2020-10-21 Outpatient R ASHLEY [facility] [id number] Univers 00:00:00 00:00:[address]EMEN ity of [facility] 2020-10-20 2020-10-20 [facility] [id number] Univers 09:55:00 23:59:00 Encounter Health [id number] ity of [id number] [place] [id number] [facility] 807 Branch ([facility]) 2020-10-20 2020-10-20 Office Srinath, [facility] [id number] Univers 09:22:14 09:37:14 Visit Health [id number] it y [place] [id number] [id number] [address] Office Building 2020-10-20 2020-10-20 Outpatient R TREVIN YO [facility] [id number] Univers 09:00:00 09:00:00 [id number] ity of [facility] 2020-10-20 2020-10-20 [facility] [id number] Univers 09:00:00 09:00:[address] [facility] 2020-10-16 2020-10-16 Telephone [facility] [id number] Univers 00:00:00 00:00:00 Saúl ARVIZU [id number] ity of [facility] [id number] [id number] [facility] AND [address] [place] [facility] 2020-10-15 2020-10-15 Telephone [facility] [id number] Univers 00:00:00 00:00:00 Saúl CORREAAGUE [id number] ity of [facility] [id number] [id number] Sd dicco AND [address] [place] [facility] 2020-10-14 2020-10-14 Office [facility] [id number] Univers 12:57:33 13:17:33 Visit Saúl ARVIZU [id number] ity of [id number] [id number] Sd dical AND [address] [place] [address] CLINIC 2020-10-14 2020-10-14 Outpatient [facility] [id number] Univers 13:00:00 13:00:00 SAÚL [id number] ity [facility] 2020-10-14 2020-10-14 Outpatient R [facility] [id number] Univers 13:00:00 13:00:00 [facility] 2020-10-13 2020-10-13 [facility] [id number] Univers 00:00:00 00:00:00 Patricia Orexo [id number] it y [id number] [id number] [address] Office Building 2020-10-02 2020-10-02 Telephone [facility] [id number] Univers 00:00:00 00:00:00 Patricia [place] [id number] it y [id number] [id number] [address] Office [facility] 2020-09-29 2020-09-29 [facility] [id number] Univers 14:18:12 23:59:00 Encounter Mulu M SPECIALTY [id number] ity of C[id number] [id number] Sd perryandrew [facility] [address] [place] [address] 2020-09-29 2020-09-29 Outpatient R [facility] [id number] Univers 15:30:00 15:30:00 [facility] 2020-09-29 2020-09-29 Hospital [facility] [id number] Univers 14:17:47 14:17:47 Encounter Patricia SPECIALTY [id number] ity of C[id number] AT [id number] Sd rebeca BEARD 804 [facility] 2020-09-29 2020-09-29 Outpatient R PIPES, [facility] [id number] Univers 00:00:00 00:00:00 PATRICIA y [facility] 2020-09-18 2020-09-18 Outpatient R PIPES, [facility] [id number] Univers 13:00:00 13:00:00 PATRICIA [id number] ity [facility] 2020-09-18 2020-09-18 Outpatient R PIPES, [facility] [id number] Univers 13:00:00 13:00:00 PATRICIA [facility] 2020-09-16 2020-09-16 Outpatient R PIPES, [facility] [id number] Univers 10:00:00 10:00:00 PATRICIA [id number] ity [facility] 2020-09-16 2020-09-16 Outpatient R PIPES, [facility] [id number] Univers 00:00:00 00:00:00 [facility] 2020-09-11 2020-09-11 Telephone Pipes, [facility] [id number] Univers 00:00:00 00:00:00 [facility] [address] [id number] it y [id number] [id number] [address] 2020-08-26 2020-08-26 Telephone Pipes, [facility] [id number] Univers 00:00:00 00:00:00 [facility] [address] [id number] it y of [id number] [id number] [address] 2020-08-21 2020-08-21 Outpatient R PIPES, [facility] [id number] Univers 09:30:00 09:30:00 PATRICIA [id number] [facility] 2020-08-18 2020-08-18 Telephone Pipes, [facility] [id number] Univers 00:00:00 00:00:00 [facility] [address] [id number] it y of [place] [id number] [facility] [id number] [address] Office [facility] 2020-08-14 2020-08-14 Inhalation Therapy Aide Draw, [facility] Lab [facility] [id number] Univers 13:01:21 13:16:21 Visit Pipes, [facility] [address] [id number] ity of [place] [id number] [facility] [id number] [address] Office Building 2020-08-14 2020-08-14 Outpatient R [facility] [id number] Univers 13:15:00 13:15:00 [id number] ity [facility] 2020-08-14 2020-08-14 Office Pip, [facility] [id number] Univers 11:48:40 12:59:11 Visit [facility] [address] [id number] it y of [place] [id number] [facility] [id number] [address] Office [facility] 2020-08-14 2020-08-14 Outpatient R [facility], [facility] [id number] Univers 11:00:00 11:00:00 [facility] 2020-08-14 2020-08-14 Orders Doctor HAROON [id number] Univers 00:00:00 00:00:00 Only Unassigned, [place] [id number] ity of [place] [facility] [id number] [place] [id number] [facility] [address] [place] 2020-08-11 2020-08-[address] [facility] [id number] Univers 23:20:00 23:58:00 Lilian Clarke [id number] ity of [place] [id number] [facility] [id number] [facility] [address] [place] 2020-08-11 2020-08-11 Emergency [facility] [id number] Univers 23:20:00 23:20:00 [facility] 2020-08-11 2020-08-11 Orders Doctor HAROON [id number] Univers 00:00:00 00:00:00 Only Unassigned, [place] [id number] ity of [place] [facility] [id number] [facility] [id number] [facility] [address] 2019-12-21 2019-12-21 Emergency Afshan, ELBA [id number] Univers 16:15:42 17:08:00 Sharon Clarke [id number] ity of [place] [id number] [facility] [id number] [facility] [address] [place] Results Test Description Test Time Test Comments Results Result Comments Source HIV 1/2 AG-AB WITH REFLEX 2020-10-15 05:34:00 Test Item Value Reference Range Interpretation Comme nts HIV Semi-quantitative (test code = Negative Negative 85795-0) IMER (test code = IMER) Non-reactive for HIV-1 antigen and HIV-1/HIV-2 antibodies. ?No laboratory evidence of HIV infection. ?Repeat in 2-4 weeks if acute HIV infection is suspected. [facility] WITH [id number] 05:34:00 Test Item Value Reference Range Interpretation Comments HIV Negative Negative Semi-quantitative (test code = 34346-3) IMER (test code = Non-reactive for HIV-1 IMER) antigen and HIV-1/HIV-2 antibodies. ?No laboratory evidence of HIV infection. ?Repeat in 2-4 weeks if acute HIV infection is suspected. [facility] L[facility] SPINE WO [id number] 03:42:31 No significant lumbar spinal stenosis or neural foraminal narrowing.Questionable right L5 pars defect, consider correlation with lumbarradiographs with oblique views versus CT. EXAMINATION: MR LUMBAR SPINE WO CONTRAST HISTORY: progressive L3-S1 lumbar radiculopathy (L>>R) May need skeletalsurvey for BB to left gluteal region. TECHNIQUE: Routine unenhanced MRI of the lumbar spine. COMPARISON: None. FINDINGS: For the purposes of this dictation, the last well-defined interspace iscalled L5-S1.There is anatomic alignment of the lumbar spine. ?Lumbar vertebrae and intervertebral discs are normalin height. Nonspecific1 cm T1 hypointense and T2 hyperintense 1 cm lesion in the inferior L53qnuggjjss body, possibly an atypical hemangioma.Questionable right L5 pars defect. L1-2: No significant spinal canal stenosis or neural foraminal narrowing. L2-3: No significant spinal canal stenosis or neural foraminal narrowing. L3-4: No significant spinal canal stenosis or neural foraminal narrowing. L4-5:No significant spinal canal stenosis or neural foraminal narrowing. L5-S1: No significant spinal canal stenosis. Mild left neural foraminalnarrowing. Normal appearance and position of the terminal spinal cord. ? Distended bladder. [facility], Radiant Results Inft User - 09/29/2020 9:43 PM CSTEXAMINATION: MR LUMBAR SPINE WO CONTRASTHISTORY: progressive L3-S1 lumbar radiculopathy (L>>R) May need skeletalsurvey for BB to left gluteal region.TECHNIQUE: Routine unenhanced MRI of the lumbar spine. COMPARISON: None.FINDINGS:For the purposes of this dictation, the last well-defined interspace iscalled L5-S1.There is anatomic alignment of the lumbar spine. Lumbar vertebrae and intervertebral discs are normal in height. Nonspecific1 cm T1 hypointense and T2 hyperintense 1 cm lesion in the inferior I57guxtbjdpz body, possibly an atypical hemangioma.Questionable right L5 pars defect. L1-2: No significantspinal canal stenosis or neural foraminal narrowing. L2-3: No significant spinal canal stenosis or neural foraminal narrowing. L3-4: No significant spinal canal stenosis or neural foraminal narrowing. L4-5: No significant spinal canal stenosis or neural foraminal narrowing. L5-S1: No significant spinal canal stenosis. Mild left neural foraminalnarrowing.Normal appearance and

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
[2021-12-18 05:19] VITALS: BP 122/82; O2SAT 98
== END 2021-12-18 04:36 | disposition home or self-care (01) ==
LOC: ER 03:58
DX: S60.222A Contusion of left hand, initial encounter (principal); V47.5XXA Car driver injured in collision with fixed or stationary object in traffic accident, initial encounter
CPT/HCPCS: 99284